=== PATIENT | male | born 1950 | race Two or more races ===

== ENCOUNTER 2017-08-07 08:24 | Inpatient (IN) | payer OTHER ==
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
[2017-08-07] MEDS ORDERED: IPRATROPIUM/ALBUTEROL 3 ML DEYVIAL ONE ×2 (08:40→15:29)
[2017-08-07] MEDS ORDERED: ALBUTEROL 3 ML DEYVIAL IH ONE ×2 (08:53→09:53)
[2017-08-07] MEDS ORDERED: methylPREDNISolone SOD SUCC 125 MG/2 ML VIAL IVP ONE (08:53)
[2017-08-07] MEDS: IPRATROPIUM/ALBUTEROL 3 ML DEYVIAL IH ONE ×2 (09:05→09:43)
[2017-08-07] MEDS ORDERED: EPINEPHrine RACEMIC INH 0.5 ML DEYVIAL IH ONE ×2 (09:39)
[2017-08-07] MEDS ORDERED: ALBUTEROL 3 ML DEYVIAL ONE (09:53)
[2017-08-07] MEDS ORDERED: KETOROLAC 30 MG/1 ML SDV IVP ONE (10:51)
[2017-08-07] MEDS ORDERED: LORazepam 2 MG/ML INJ IVP ONE (11:33)
--- NOTE | 2017-08-07 14:11 | CPEKG ---
Heart Rate: 101 RR Interval: 594 P-R Interval: 164 QRSD Interval: 96 QT Interval: 352 QTC Interval: 457 P [place]: 16 QRS [place]: -3 T Wave [place]: -4 EKG Severity - BORDERLINE ECG - EKG Impression: SINUS TACHYCARDIA EKG Impression: BORDERLINE R WAVE PROGRESSION, ANTERIOR LEADS EKG Impression: BORDERLINE T ABNORMALITIES, INFERIOR LEADS Electronically Signed By: Idris Wild 09-Aug-2017 07:29:20
[2017-08-07] MEDS ORDERED: NON-FORMULARY NEW DRUG (Temazepam [Restoril] 30 MG) PO PRN (14:19)
[2017-08-07] MEDS ORDERED: BENZONATATE 100 MG CAP PO PRN (14:19)
[2017-08-07] MEDS ORDERED: ONDANSETRON DISINTEGRATING 4 MG TAB PO PRN (14:20)
[2017-08-07] MEDS ORDERED: ACETAMINOPHEN 325 MG TAB PO PRN (14:20)
[2017-08-07] MEDS ORDERED: ONDANSETRON 4 MG/2 ML VIAL IVP PRN (14:20)
[2017-08-07] MEDS ORDERED: NON-FORMULARY NEW DRUG (Omeprazole Magnesium [Prilosec Otc] 20 MG) PO SCH (14:30)
--- NOTE | 2017-08-07 15:29 | GHP ---
[f rep st] HISTORY AND PHYSICAL DATE OF ADMISSION: 08/07/2017 CHIEF COMPLAINT: Cough and wheezing. HISTORY OF PRESENT ILLNESS: This is a middle-aged gentleman, who presents with a complaint of cough and wheezing. Has a history of reactive airway disease which is exacerbated by upper respiratory inf ections and environmental conditions. He had been traveling through [place] and [place] through the [place] and noticed he had developed some nasal stuffiness and approximately 5 days ago developed a very slight cough. The cough persisted for the next 2 days, and then 3 days [employer] the cough became worse, and 2 days [employer] he began attempting to use his albuterol inhaler. He also at that time had a p rescription from his PCP for azithromycin, which he took 2 tablets. He continued to use the albutero l inhaler and on the day of admission he started prednisone, which had also been given. He presented to the emergency department with cough and shortness of breath. There he received 3 treatments of a lbuterol, 1 treatment of a DuoNeb treatment, and 1 of racemic epinephrine. His cough has persisted, and because he began to have oxygen desaturation, it was decided to admit him. He continues to compl ain of cough, feels as though he cannot take a deep breath, and his throat feels tight to him. He de nies during this time of having fever, chills, sweats, nausea, or vomiting. He has not had malaise. He does have a mild headache, which he reports came probably from his repetitive coughing. There john s been no diarrhea. He denies having chest pain, symptoms of orthopnea, PND, or any prior history of coronary artery disease. There is no history of GERD, and he does not take medications for this. H e denies diarrhea. PAST MEDICAL HISTORY: 1. Known reactive airways disease, as noted above. He has no history of tobacco use of any note. 2. Hypertension and hyperlipidemia, both of which are under treatment. 3. Gout, for which he takes colchicine and probenecid and has for the last 15 years. His usual gout occurs in his left great toe. He has not had an acute gouty flare in many years. He denies environ mental allergies of any specific nature, diabetes, or any renal problems. PAST SURGICAL HISTORY: Had a tonsillectomy, cyst removed from his face and 1 from his back, and had lumbar back surgery remotely. ALLERGIES: Codeine, which causes severe nausea, and another narcotic form which also causes nausea. REVIEW OF SYSTEMS: A 10-point review of systems is otherwise negative except as noted in the HPI. S pecifically, he does report having a mild headache, but he does not chronically have headaches and he believes that headache is secondary to his coughing. He denies diarrhea, nausea, or vomiting. No h istory of any skin rash, inflamed or tender joints, and he denies any prior coronary history consiste nt with coronary artery disease. FAMILY HISTORY: May be positive for colon cancer in his father, although his father at an advan rakesh age. His mother also at an advanced age. There is no specific history consistent with rae y coronary artery disease. SOCIAL HISTORY: He is , traveling with his . He smoked for about 6 weeks in high school, but has never smoked again. Alcohol: He will drink 1 beer and maybe a mixed drink a day. He has n ever drank in abuse and never had problems with it. Marijuana is none, and he does not use recreatio nal drugs. PHYSICAL EXAMINATION: GENERAL: A pleasant, alert gentleman, who I am seeing in the emergency depart ment. He appears very slightly short of breath, but not in respiratory distress. He coughs often du ring my examination. VITAL SIGNS: Otherwise normal and he is afebrile. HEENT: Shows his tongue, b uccal mucosa, and posterior oropharynx are normal. There is a feeling of tension and firmness about the thyroid region and his anterior trachea, which he reports causes him to cough and feel short of b reath. There is no adenopathy noted in the submandibular, anterior, or posterior cervical chain. JORGE NGS: Diminished breath sounds overall. They are rather harsh in all lung bergman and there is very s light expiratory wheezing noted in various areas of the lung. He has no inspiratory splinting. HEAR T: Singular S1 and S2. No murmur or gallop. ABDOMEN: Overweight. Normoactive bowel sounds. No m asses, tenderness, or organomegaly. EXTREMITIES: No edema, cyanosis, clubbing, or joint deformities . Joints show no inflammation or swelling. LABORATORY: CBC and CMP are pending at this dictation. An ECG, to my reading, shows a normal sinus rhythm and a sinus tachycardia at approximately 105. There is evidence of a left axis deviation and, therefore, left anterior hemiblock by axis. He has slow R-wave progression across the precordium, c onsistent with a remote anterior septal FL or lead placement. T-waves are flattened or inverted infe riorly, which is a nonspecific finding. There are no definitive acute findings. Chest x-ray, to my reading, shows a borderline cardiomegaly. There is platelike atelectasis in the left lung field, whi ch has improved from his previous chest x-ray. There is also a suggestion of possible very slight in filtrate in the right lower lobe. CBC, CMP, respiratory PCR panel are pending at this dictation. ASSESSMENT: 1. Acute exacerbation of reactive airway disease. The gentleman gives a good history of reactive ai rway disease exacerbated by both environmental factors and upper respiratory infections. He has been exposed to smoke and began taking azithromycin 3 days ago. He has 2 remaining tablets to take to co mplete a full course. He started steroids approximately 6 hours before this admission, and has been unsuccessfully using an albuterol inhaler. Here, he is clearly moving sufficient air, but continues to have tightness in his upper airway and be slightly tachypneic and anxious. Thus, a short stay wit h treatment for his asthma with bronchodilators, steroids, and will continue and complete his course of azithromycin. I expect he should improve in the next 24 hours. 2. Hypertension, which is currently in good control and we will continue to treat this with his usua l outpatient medication. 3. Hyperlipidemia. We will continue his usual medications. 4. Gout. There was no notice of exacerbation. 5. Code status is full. 6. Deep venous thrombosis prophylaxis will be with Lovenox and then early ambulation. At the current time this patient will be admitted to observation. We may be able to resolve this mat ter within 24-36 hours. /[id number]/MODL
[2017-08-07] MEDS: IPRATROPIUM/ALBUTEROL 3 ML DEYVIAL IH SCH ×2 (15:32→20:28)
[2017-08-07] MEDS: EZETIMIBE 10 MG TAB PO SCH (16:28)
[2017-08-07] MEDS: methylPREDNISolone SOD SUCC 40 MG/ML VIAL IVP SCH ×2 (16:28→21:37)
[2017-08-07] MEDS: AZITHROMYCIN IV 500 MG in D5W 250 ML IV SCH (16:28)
[2017-08-07] MEDS: [UNRECOGNIZED DRUG - OTHER] PO SCH (16:32)
[2017-08-07] MEDS: COLCHICINE PO SCH (16:32)
[2017-08-07] MEDS: NS 1,000 ML IV SCH (16:33)
[2017-08-07 16:39] LABS: % IMMATURE GRANULYOCYTES 0.5 % (0.0-1.1); ABSOLUTE IMMATURE GRANULOCYTES 0.06 10^3/uL (0.00-0.10); ADD DIFF? NO; ADD MORPH? NO; ADD SCAN? NO; ATYPICAL LYMPHOCYTE FLAG 0 (0-99); FRAGMENT RBC FLAG 0 (0-99); HEMATOCRIT 36.2 % (40.0-51.0); HEMOGLOBIN 11.4 g/dL (13.7-17.5); LEFT SHIFT FLG 0 (0-99); LIPEMIA HEMOLYSIS FLAG 80 (0-99); MEAN CELL HEMOGLOBIN 25.7 pg (27.9-34.1); MEAN CELL HEMOGLOBIN CONCENTR. 31.5 g/dL (32.4-36.7); MEAN CELL VOLUME 81.7 fL (81.5-99.8); PLATELET CLUMPS FLAG 0 (0-99); PLATELET COUNT 215 10^3/uL (150-400); RED BLOOD CELL COUNT 4.43 10^6/uL (4.40-6.38); RED CELL DISTRIBUTION WIDTH 15.9 % (11.5-15.2)
[2017-08-07 17:21] LABS: ALANINE AMINOTRANSFERASE 41 IU/L (21-72); ALBUMIN 3.8 g/dL (3.5-5.0); ALKALINE PHOSPHATASE 77 IU/L (38-126); ANION GAP 16 mEq/L (8-16); ASPARTATE AMINOTRANSFERASE 33 IU/L (17-59); BILIRUBIN,TOTAL 0.4 mg/dL (0.1-1.4); CALCIUM 8.9 mg/dL (8.5-10.4); CARBON DIOXIDE 20 mEq/l (22-31); CHLORIDE 102 mEq/L (97-110); GLOMERULAR FILTRATION RATE > 60; GLUCOSE 244 mg/dL (70-100); POTASSIUM 4.1 mEq/L (3.5-5.2); SODIUM 138 mEq/L (134-144); TOTAL PROTEIN 6.5 g/dL (6.3-8.2)
[2017-08-07 19:05] LABS: COLOR YELLOW; LEUKOCYTE ESTERASE,URINE NEGATIVE (NEGATIVE); NITRITE,URINE NEGATIVE (NEGATIVE)
[2017-08-07 19:09] LABS: MUCUS TRACE /lpf (NONE-1+)
[2017-08-07] MEDS: TEMAZEPAM 15 MG CAP PO PRN (21:04)
[2017-08-07] MEDS: MONTELUKAST SODIUM 10 MG TAB PO SCH (21:37)
[2017-08-07] MEDS: AMLODIPINE BESYLATE 5/BENAZEPRIL 20MG 1 EACH CAP PO SCH (21:47)
[2017-08-08] MEDS: IPRATROPIUM/ALBUTEROL 3 ML DEYVIAL IH SCH ×6 (01:18→20:34)
[2017-08-08] MEDS: NS 1,000 ML IV SCH (01:55)
[2017-08-08 05:45] LABS: % IMMATURE GRANULYOCYTES 0.8 % (0.0-1.1); ADD DIFF? NO; ADD MORPH? NO; ADD SCAN? NO; ATYPICAL LYMPHOCYTE FLAG 0 (0-99); FRAGMENT RBC FLAG 0 (0-99); HEMATOCRIT 34.9 % (40.0-51.0); LEFT SHIFT FLG 0 (0-99); LIPEMIA HEMOLYSIS FLAG 80 (0-99); MEAN CELL HEMOGLOBIN 25.4 pg (27.9-34.1); MEAN CELL HEMOGLOBIN CONCENTR. 31.5 g/dL (32.4-36.7); MEAN CELL VOLUME 80.6 fL (81.5-99.8); MEAN PLATELET VOLUME 10.9 fL (8.7-11.7); PLATELET CLUMPS FLAG 0 (0-99); PLATELET COUNT 216 10^3/uL (150-400); RED BLOOD CELL COUNT 4.33 10^6/uL (4.40-6.38); RED CELL DISTRIBUTION WIDTH 15.9 % (11.5-15.2)
[2017-08-08] MEDS: methylPREDNISolone SOD SUCC 40 MG/ML VIAL IVP SCH (06:09)
[2017-08-08] MEDS ORDERED: IBUPROFEN 200 MG TAB PO ONE (06:28)
[2017-08-08] MEDS: ATORVASTATIN CALCIUM 40 MG TAB PO SCH (08:38)
[2017-08-08] MEDS: PANTOPRAZOLE SODIUM 40 MG TAB PO SCH (08:38)
[2017-08-08] MEDS: AZITHROMYCIN IV 500 MG in D5W 250 ML IV SCH (08:38)
[2017-08-08] MEDS: EZETIMIBE 10 MG TAB PO SCH (08:38)
[2017-08-08] MEDS: ENOXAPARIN 40 MG/0.4 ML SYR SC SCH (08:40)
--- NOTE | 2017-08-08 10:54 | HOSPPROG ---
Hospitalist Progress Note Assessment/Plan: 67 yo male with acute asthma, slightly improved yet still coughing some and feeling of SOB. O2 needs approximately 1 liter /min now, -Acute RAD - acute influenza: Patient will be placed on Tamiflu. Isolation precautions will be performed -HTN: good control -Gout: no flare Plan: remain one more day for pulmonary clearance, still wheezing some in a few lung bergman -change to inpatient - Tamiflu for the acute influenza - discharge tomorrow on Advair, Medrol Dosepak, Tamiflu, and Mucinex, with Tessalon Perles Subjective: still coughing some, feels improved. No chest pain, nausea, vomiting, appeatite is good, no abdominal pain Objective: Vital Signs Temp Pulse Resp BP Pulse Ox 37.2 C 91 18 119/94 H 94 08/08/17 07:56 08/08/17 09:53 08/08/17 09:53 08/08/17 07:56 08/08/17 09:53 Microbiology 08/08/17 02:00 Respiratory Panel (PCR) - Final Unspecified Laboratory Results 08/08/17 05:10 08/07/17 16:06 08/07/17 08/08/17 08/09/17 05:59 05:59 05:59 Intake Total 600 Output Total 400 Balance 200 - Time Spent With Patient Time Spent with Patient: greater than 35 minutes Time Spent with Patient: Greater than 35 minutes spent on this patients care, greater than 50% of time spent counseling, educating, and coordinating care regarding the above mentioned plan. - Pending Discharge Pending Discharge Within 24 Hours: Yes Pending Discharge Date: 08/09/17 Pending Discharge Time: 11:00 - Physical Exam Constitutional: no apparent distress Eyes: PERRL, anicteric sclera Ears, Nose, Mouth, Throat: moist mucous membranes, hearing normal Cardiovascular: regular rate and rhythym, no murmur, rub, or gallop Respiratory: no respiratory distress, expiratory wheeze Gastrointestinal: normoactive bowel sounds, soft, non-tender abdomen Genitourinary: no bladder fullness Skin: warm Musculoskeletal: full muscle strength Neurologic: AAOx3, CN II-XII Intact Psychiatric: interacting appropriately ICD10 Worksheet Patient Problems: Problems Problem Status Onset Respiratory failure Acute Reactive airway disease with acute exacerbation Acute Hypoxemia Acute
[2017-08-08] MEDS: COLCHICINE PO SCH (12:14)
[2017-08-08] MEDS: [UNRECOGNIZED DRUG - OTHER] PO SCH (12:14)
[2017-08-08] MEDS: predniSONE 20 MG TAB PO SCH ×2 (14:22→18:28)
[2017-08-08] MEDS: OSELTAMIVIR PHOSPHATE 75 MG CAP PO SCH ×2 (15:43→17:06)
--- NOTE | 2017-08-08 17:29 | ASMTCMCOM ---
CM Note CM Note Notes: Pt in with the flu, lives with and they travel together. Anticipate no needs, will dc home w/support of when medically stable. CM availble for any changes. Date Signed: 08/08/2017 05:28 PM Electronically Signed By:Shari Lawrence RN
[2017-08-08] MEDS: AMLODIPINE BESYLATE 5/BENAZEPRIL 20MG 1 EACH CAP PO SCH (20:16)
[2017-08-08] MEDS: MONTELUKAST SODIUM 10 MG TAB PO SCH (20:16)
[2017-08-08] MEDS: TEMAZEPAM 15 MG CAP PO PRN (20:17)
[2017-08-09 04:27] VITALS: BP 125/74
[2017-08-09] MEDS: IPRATROPIUM/ALBUTEROL 3 ML DEYVIAL IH SCH (05:51)
[2017-08-09 07:52] VITALS: PULSE 81; RESP 18; TEMP 99; O2SAT 92
[2017-08-09] MEDS: OSELTAMIVIR PHOSPHATE 75 MG CAP PO SCH (09:00)
[2017-08-09] MEDS: EZETIMIBE 10 MG TAB PO SCH (09:00)
[2017-08-09] MEDS ORDERED: [UNRECOGNIZED DRUG - OTHER] PO SCH (09:00)
[2017-08-09] MEDS: ATORVASTATIN CALCIUM 40 MG TAB PO SCH (09:00)
[2017-08-09] MEDS: PANTOPRAZOLE SODIUM 40 MG TAB PO SCH (09:00)
[2017-08-09] MEDS ORDERED: COLCHICINE PO SCH (09:00)
[2017-08-09] MEDS: predniSONE 20 MG TAB PO SCH (09:01)
[2017-08-09] MEDS: AZITHROMYCIN IV 500 MG in D5W 250 ML IV SCH (09:17)
[2017-08-09] MEDS: ENOXAPARIN 40 MG/0.4 ML SYR SC SCH (09:17)
--- NOTE | 2017-08-09 12:22 | GDS ---
[f rep st] DISCHARGE SUMMARY KNOWN ACUTE DIAGNOSES: On this admission: 1. Acute influenza A. 2. Acute exacerbation of underlying reactive airways disease. 3. Hypertension. CHRONIC DIAGNOSES: 1. Hyperlipidemia. 2. Gout. CONSULTATIONS: None. PROCEDURES: None. HOSPITAL COURSE: 67-year-old male presents with acute wheezing, cough, and shortness of breath. He was initially treated for exacerbation of his underlying reactive airways disease, but then returned influenza flu positive, and was placed on Tamiflu 75 mg twice daily. He had initially been treated w ith azithromycin for 3 days, and received 2 more days of azithromycin and completed the course. He h ad significant improvement with improved air flow. He had some persistent cough, with a few rhonchi noted in the lower lobes bilaterally. At the time of discharge, room air saturation was normal. Blo od pressure was normal. DISCHARGE MEDICATIONS: Tamiflu 75 mg twice b.i.d. for 5 days, amlodipine, benazepril 10/40 mg tablet 1 capsule at q.h.s., Probenecid, colchicine 1 tablet p.o. daily, omeprazole 20 mg daily, Lipitor 40 mg daily, Zetia 10 mg daily, Singulair 10 mg p.o. h.s., Restoril 30 mg h.s., Tylenol p.r.n., Tessalon Perles 100 mg b.i.d. We discontinued the azithromycin. New medications are Advair 250/50 one inhalation b.i.d., Medrol Dosepak, and Tamiflu 75 mg b.i.d. PLAN: The gentleman is traveling to [place], [place], and has been cautioned to obtain physician care there if he needs. He will see Dr. Prakash Kearns, his PCP here in [place], when he returns, and he will see Dr. Carlos A Webb again for return pulmonary care. /[id number]/MODL
--- NOTE | 2017-08-09 17:27 | ASDISCHSUM ---
Discharge Information Plan Status:Home with No Needs Medically Cleared to Leave:08/09/2017 Discharge Date:08/09/2017 09:17 AM CM D/C Disposition:Home, Routine, Self-Care ADT D/C Disposition:Home, Routine, Self-Care Projected Discharge Date:08/09/2017 12:00 AM Transportation at D/C: Discharge Delay Reason: Follow-Up Date:08/09/2017 12:00 AM Discharge Slot: Final Diagnosis: Placement Information Patient Contact Information Contact Name:ALONSO Relationship: [address] [facility] [facility] [place] Alternate Phone: State/Zip Code:[place] [address] Email: Financial Information Financial Class:Medicare Advantage Plans Primary Plan Desc:[facility] ADVANTAGE PLANS Primary Plan Number:[id number] Secondary Plan Desc: Secondary Plan Number: Assessment Information BC CM Progress Note CM Note CM Note Notes: Pt in with the flu, lives with and they travel together. Anticipate no needs, will dc home w/support of when medically stable. CM availble for any changes. Date Signed: 08/08/2017 05:28 PM Electronically Signed By:Shari Lawrence RN Intervention Information Intervention Type:*DHALIWAL-Signed Date of Service:08/08/2017 09:31 AM Patient Type:Observation Staff Member:Angela Noel Hours: Discipline: Severity: Comment:
== END 2017-08-09 09:17 | disposition home or self-care (01) | DRG 194 ==
LOC: F3E 14:17 → OBSVTOIN 08-08 10:54
PROVIDERS: ADMIT Internal Medicine Pulmonary Disease; ATTEND Internal Medicine Pulmonary Disease
DX: J10.1 Influenza due to other identified influenza virus with other respiratory manifestations (principal); J45.901 Unspecified asthma with (acute) exacerbation; I10 Essential (primary) hypertension; E78.5 Hyperlipidemia, unspecified; M10.9 Gout, unspecified
CPT/HCPCS: 96374; G0378; J0456; J1650; J1885; J2060

== ENCOUNTER 2018-05-02 11:37 | Emergency (ER) | payer OTHER ==
--- NOTE | 2018-05-02 12:16 | CPEKG ---
Heart Rate: 64 RR Interval: 938 P-R Interval: 180 QRSD Interval: 96 QT Interval: 416 QTC Interval: 430 P [place]: 8 QRS [place]: -16 T Wave [place]: -7 EKG Severity - BORDERLINE ECG - EKG Impression: SINUS RHYTHM EKG Impression: BORDERLINE LEFT AXIS DEVIATION EKG Impression: BORDERLINE R WAVE PROGRESSION, ANTERIOR LEADS EKG Impression: BORDERLINE T ABNORMALITIES, INFERIOR LEADS Electronically Signed By: Guy Holcomb 02-May-2018 15:04:51
[2018-05-02] MEDS ORDERED: NS 1,000 ML IV ONE (12:57)
[2018-05-02] MEDS ORDERED: ONDANSETRON 4 MG/2 ML VIAL IVP ONE (12:57)
[2018-05-02] MEDS ORDERED: MECLIZINE HCL 25 MG TAB PO ONE (13:08)
--- NOTE | 2018-05-02 13:11 | EDPHY ---
H & P Stated Complaint: cough, N/V/D Time Seen by Provider: 05/02/18 12:57 HPI/ROS: CHIEF COMPLAINT: Dizziness, vomiting HISTORY OF PRESENT ILLNESS: 68-year-old male with hypertension presents with dizziness and vomiting. Upon awakening this morning, he had acute onset of dizziness, described as a room spinning sensation. The vertigo worsens with head movement and position change. Associated with 3 episodes of vomiting. He also feels the need to take a deep breath but is unable to get a full breath. REVIEW OF SYSTEMS: complete 10 point ROS negative except at noted in the HPI - Personal History Current Tetanus/Diphtheria Vaccine: Yes Current Tetanus Diphtheria and Acellular Pertussis (TDAP): Yes Tetanus Vaccine Date: sunday - Medical/Surgical History Hx Asthma: No Hx Chronic Respiratory Disease: Yes Hx Diabetes: No Hx Cardiac Disease: No Hx Renal Disease: No Hx Cirrhosis: No Hx Alcoholism: No Hx HIV/AIDS: No Hx Splenectomy or Spleen Trauma: No Other PMH: pmh- asthma, Hypertension, peptic ulcer disease, gout. psh- tonsils , cysts removed - Social History Smoking Status: Never smoked Constitutional: Initial Vital Signs Temperature (C) 36.6 C 05/02/18 12:05 Heart Rate 72 05/02/18 12:05 Respiratory Rate 24 H 05/02/18 12:05 Blood Pressure 131/79 H 05/02/18 12:05 O2 Sat (%) 96 05/02/18 12:05 O2 Delivery Mode Room Air Allergies/Adverse Reactions: codeine Allergy (Severe, Verified 05/02/18 12:02) Vomiting hydrocodone bitartrate [From Vicodin] Allergy (Severe, Verified 05/02/18 12:02) Vomiting Home Medications: Medication Instructions Recorded Amlodipine Besylate/Benazepril 1 cap PO HS 12/28/14 [Amlodipine-Benazepril 10-40 mg] Colchicine/Probenecid 1 tab PO DAILY 12/28/14 [Probenecid-Colchicine Tabs] Omeprazole Magnesium [Prilosec Otc] 20 mg PO DAILY 06/28/16 Atorvastatin Calcium [Lipitor 40 40 mg PO DAILY #0 tab 08/23/16 mg (*)] Ezetimibe [Zetia 10 MG (*)] 10 mg PO DAILY #0 tab 08/23/16 Montelukast Sodium [Singulair 10 10 mg PO HS #0 tab 08/23/16 mg (*)] Acetaminophen [Tylenol 325mg (*)] 6 tab PO BID PRN 08/07/17 Temazepam [Restoril] 30 mg PO HS PRN 08/07/17 Albuterol [Proventil Inhaler HFA 1 - 2 puffs IH Q4H #1 mdi 08/08/17 (*)] Fluticasone/Salmeter 250/50Mcg 1 each IH BID #1 disk 08/08/17 [Advair 250/50 (*)] Ibuprofen 05/02/18 Meclizine HCl [Meclizine HCl 25 mg 25 mg PO TID PRN #15 tab 05/02/18 (RX,OTC)] Medical Decision Making - Diagnostics EKG Interpretation: EKG interpreted by me reveals normal sinus rhythm, rate 64, poor R-wave progression. Interpretation abnormal EKG Imaging Results: Imaging Impressions Head CT 05/02/18 13:09 Impression: No evidence for acute intracranial abnormality. Mild periventricular and deep hemispheric white matter change that can be seen with small vessel ischemic disease. Other chronic findings as above. Results called and discussed with Dr. Ruth Hogan on May 02, 2018 at 1403 hours. ED Course/Re-evaluation: This patient presents with vertigo. Neurologic exam is normal and there are no concerning signs or symptoms suggestive of a central etiology for vertigo. IV normal saline 1 L and Zofran 4 m IV given, followed by meclizine 25 mg orally. 1415: feels much better, nausea and dizziness have resolved. Neurologic exam remains normal. Ambulated with steady gait. Safe and stable for discharge home. Warning signs discussed. Differential Diagnosis: Differential diagnosis includes TIA, stroke, intracranial hemorrhage, tumor, electrolyte abnormality and acute labyrinthitis. - Data Points Laboratory Results: Laboratory Results 05/02/18 13:12 05/02/18 13:12 05/02/18 05/02/18 13:12 13:12 WBC 9.65 10^3/uL H 10^3/uL (3.80-9.50) RBC 5.27 10^6/uL 10^6/uL (4.40-6.38) Hgb 12.3 g/dL L g/dL (13.7-17.5) Hct 39.4 % L % (40.0-51.0) MCV 74.8 fL L fL (81.5-99.8) MCH 23.3 pg L pg (27.9-34.1) MCHC 31.2 g/dL L g/dL (32.4-36.7) RDW 17.3 % H % (11.5-15.2) Plt Count 236 10^3/uL 10^3/uL (150-400) MPV 10.4 fL fL (8.7-11.7) Neut % (Auto) 78.2 % H % (39.3-74.2) Lymph % (Auto) 13.1 % L % (15.0-45.0) [place] % (Auto) 7.2 % % (4.5-13.0) Eos % (Auto) 0.9 % % (0.6-7.6) Baso % (Auto) 0.3 % % (0.3-1.7) Nucleat RBC Rel Count 0.0 % % (0.0-0.2) Absolute Neuts (auto) 7.55 10^3/uL H 10^3/uL (1.70-6.50) Absolute Lymphs (auto) 1.26 10^3/uL 10^3/uL (1.00-3.00) Absolute Monos (auto) 0.69 10^3/uL 10^3/uL (0.30-0.80) Absolute Eos (auto) 0.09 10^3/uL 10^3/uL (0.03-0.40) Absolute Basos (auto) 0.03 10^3/uL 10^3/uL (0.02-0.10) Absolute Nucleated RBC 0.00 10^3/uL 10^3/uL (0-0.01) Immature Gran % 0.3 % % (0.0-1.1) Immature Gran # 0.03 10^3/uL 10^3/uL (0.00-0.10) Sodium 143 mEq/L mEq/L (135-145) Potassium 4.1 mEq/L mEq/L (3.3-5.0) Chloride 104 mEq/L mEq/L (97-110) Carbon Dioxide 24 mEq/l mEq/l (22-31) Anion Gap 15 mEq/L mEq/L (8-16) BUN 16 mg/dL mg/dL (7-23) Creatinine 0.9 mg/dL mg/dL (0.7-1.3) Estimated GFR > 60 Glucose 112 mg/dL H mg/dL (70-100) Calcium 9.4 mg/dL mg/dL (8.5-10.4) Total Bilirubin 0.6 mg/dL mg/dL (0.1-1.4) Conjugated Bilirubin 0.4 mg/dL mg/dL (0.0-0.5) Unconjugated Bilirubin 0.2 mg/dL mg/dL (0.0-1.1) AST 34 IU/L IU/L (17-59) ALT 40 IU/L IU/L (21-72) Alkaline Phosphatase 128 IU/L H IU/L (38-126) Total Protein 7.5 g/dL g/dL (6.3-8.2) Albumin 4.4 g/dL g/dL (3.5-5.0) Lipase 86 IU/L IU/L (23-300) Medications Given: Discontinued Medications Sodium Chloride (Ns) 1,000 mls @ 0 mls/hr IV EDNOW ONE; Wide Open PRN Reason: Protocol Stop: 05/02/18 12:58 Last Admin: 05/02/18 13:13 Dose: 1,000 mls Meclizine HCl (Meclizine Hcl) 25 mg PO EDNOW ONE Stop: 05/02/18 13:09 Last Admin: 05/02/18 13:34 Dose: 25 mg Ondansetron HCl (Zofran) 4 mg IVP EDNOW ONE Stop: 05/02/18 12:58 Last Admin: 05/02/18 13:13 Dose: 4 mg Departure - Departure Disposition: Home, Routine, Self-Care Clinical Impression: Vertigo Condition: Good Instructions: Vertigo (ED) Additional Instructions: Return for worsening symptoms or any concerns. Referrals: NELLY MENON [Primary Care Provider] - As per Instructions Prescriptions: Meclizine HCl [Meclizine HCl 25 mg (RX,OTC)] 25 mg PO TID PRN #15 tab PRN Reason: Dizziness
[2018-05-02 13:25] LABS: PLATELET COUNT 236 10^3/uL (150-400)
[2018-05-02 14:10] VITALS: BP 112/74
== END 2018-05-02 14:33 | disposition home or self-care (01) ==
DX: R42 Dizziness and giddiness (principal); J45.909 Unspecified asthma, uncomplicated; I10 Essential (primary) hypertension; E86.9 Volume depletion, unspecified
CPT/HCPCS: 70450; 93005; 96361; 96374; 99285; J2405